=== PATIENT | male | born 1950 | race American Indian/Alaskan Native ===

== ENCOUNTER 2019-07-03 14:37 | Emergency (ER) | payer OTHER ==
[2019-07-03 14:47] VITALS: BP 123/77
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
[2019-07-03] MEDS ORDERED: IBUPROFEN 600 MG TAB PO ONE (17:36)
[2019-07-03] MEDS ORDERED: ACETAMINOPHEN 325 MG TAB PO ONE (17:37)
[2019-07-03] MEDS ORDERED: ACETAMINOPHEN 325 MG TAB ONE (17:39)
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
[2019-07-03] MEDS ORDERED: HYDROcodone/ACETAMINOPHEN 5-325 MG TAB PO ONE (20:05)
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
== END 2019-07-03 20:32 | disposition home or self-care (01) ==
LOC: ED 14:37
DX: S16.1XXA Strain of muscle, fascia and tendon at neck level, initial encounter (principal); S09.90XA Unspecified injury of head, initial encounter; F17.210 Nicotine dependence, cigarettes, uncomplicated; F12.10 Cannabis abuse, uncomplicated; E78.00 Pure hypercholesterolemia, unspecified; Z98.890 Other specified postprocedural states
CPT/HCPCS: 70450; 72040

== ENCOUNTER 2020-03-09 13:27 | Emergency (ER) | payer MEDICARE, OTHER ==
[2020-03-09 13:41] VITALS: BP 114/72
[2020-03-09] MEDS ORDERED: IBUPROFEN 600 MG TAB PO ONE (14:26)
[2020-03-09] MEDS ORDERED: ACETAMINOPHEN 325 MG TAB PO ONE (14:27)
[2020-03-09] MEDS ORDERED: ACETAMINOPHEN 325 MG TAB ONE (14:29)
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
[2020-03-09] MEDS ORDERED: DIPHtheria,PERTUSSIS(ACELL),TETANUS VACCINE/PF 0.5 ML VIAL IM ONE (16:42)
[2020-03-09] MEDS ORDERED: NEOMY 3.5 MG/BACIT 400 UNITS/POLY B 5000 UNITS/GM OINT PACKET TP ONE (16:42)
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
== END 2020-03-09 17:54 | disposition home or self-care (01) ==
LOC: ED 13:27
DX: S51.012A Laceration without foreign body of left elbow, initial encounter (principal); R51 Headache; M25.511 Pain in right shoulder; M54.6 Pain in thoracic spine; M54.2 Cervicalgia; R93.7 Abnormal findings on diagnostic imaging of other parts of musculoskeletal system; F17.200 Nicotine dependence, unspecified, uncomplicated; F12.10 Cannabis abuse, uncomplicated; Z98.890 Other specified postprocedural states; W01.0XXA Fall on same level from slipping, tripping and stumbling without subsequent striking against object, initial encounter; Y93.89 Activity, other specified; Y92.89 Other specified places as the place of occurrence of the external cause; Y99.8 Other external cause status
CPT/HCPCS: 70450; 72125; 72128; 73030; 73080; 90471; 90715; 99284; A6250